=== PATIENT | male | born 1985 | race Hispanic/Latino ===

== ENCOUNTER 2019-08-08 15:49 | Emergency (ER) | payer SELFPAY ==
[2019-08-08] MEDS ORDERED: ONDANSETRON 4 MG ODT TAB PO ONE (19:26)
--- NOTE | 2019-08-08 19:26 | Event Note ---
ED Screening Note ED Screening Note: yesterday morning N/V/D states he has body aches headache states he has hiccups epigastric abd discomfort PMHx GERD no allergies to meds non smoker rare drinker no drug use This initial assessment/diagnostic orders/clinical plan/treatment(s) is/are subject to change based on patients health status, clinical progression and re- assessment by fellow clinical providers in the ED. Further treatment and workup at subsequent clinical providers discretion. Patient/guardian urged not to elope from the ED as their condition may be serious if not clinically assessed and managed. Initial orders include: labs, UA zofran given
[2019-08-08 21:08] LABS: Basophils % (Auto) 0.2 % (0.0-1.8); Lymphocytes # (Auto) 0.4 K/mm3 (1.2-5.4); Lymphocytes % (Auto) 4.9 % (13.4-35.0); Mean Corpuscular HGB Conc 35 % (32-34); Mean Corpuscular Volume 89 fl (84-94); Monocytes # (Auto) 0.4 K/mm3 (0.0-0.8); Monocytes % (Auto) 5.6 % (0.0-7.3); Platelet Count 177 K/mm3 (140-440); Red Blood Count 5.96 M/mm3 (3.65-5.03); Red Cell Distribution Width 13.3 % (13.2-15.2)
[2019-08-08 21:16] LABS: Hematocrit 52.7 % (35.5-45.6); Hemoglobin 18.6 gm/dl (11.8-15.2)
[2019-08-08 21:30] LABS: Alanine Aminotransferase 32 units/L (7-56); Albumin 4.6 g/dL (3.9-5); BUN/Creatinine Ratio 23; Blood Urea Nitrogen 23 mg/dL (9-20); Calcium 9.2 mg/dL (8.4-10.2); Hemolysis Index 11
[2019-08-08 21:48] LABS: Bilirubin,Urine NEG (Negative); Blood,Urine NEG (Negative); Color,Urine Amber (Yellow); Mucus,Urine FEW /HPF; Urobilinogen,Urine < 2.0 mg/dL (<2.0)
[2019-08-08] MEDS ORDERED: FAMOTIDINE 20 MG/2 ML INJ IV ONE (21:51)
[2019-08-08] MEDS ORDERED: SODIUM CHLORIDE 0.9% 1000 ML 1,000 ML IV ONE ×2 (21:51→22:45)
[2019-08-08] MEDS ORDERED: ONDANSETRON 4 MG/2 ML INJ IV ONE (21:51)
[2019-08-08] MEDS ORDERED: ACETAMINOPHEN 500 MG TAB PO ONE (22:45)
[2019-08-09] MEDS ORDERED: cefTRIAXone/NS 1 GM/50 ML 1 GM/50 ML BAG IV ONE (00:32)
--- NOTE | 2019-08-09 00:58 | XRay Report ---
CHEST 2 VIEWS INDICATION / CLINICAL INFORMATION: cough. COMPARISON: None available. FINDINGS: SUPPORT DEVICES: None. HEART / MEDIASTINUM: No significant abnormality. LUNGS / PLEURA: No significant pulmonary or pleural abnormality. No pneumothorax. ADDITIONAL FINDINGS: No significant additional findings. IMPRESSION: 1. No acute abnormality of the chest. Signer Name: Rodolfo Vásquez MD Signed: 08/09/2019 12:53 AM Workstation Name: [id number]
--- NOTE | 2019-08-09 02:47 | Emergency Department Report ---
ED N/V/D HPI - General Chief complaint: Abdominal Pain Stated complaint: N/V Time Seen by Provider: 08/08/19 19:24 Source: patient Mode of arrival: Ambulatory Limitations: No Limitations - History of Present Illness Initial comments: Patient is a 34 year-old white male with no past medical history except GERD who presents to the ED with complaint of acute onset persistent diffuse body aches and pains, nausea and vomiting, diarrhea, epigastric pain, intermittent fever and chills, diaphoresis and headache for the last 2 days worse in the last 6 hours. Patient denies dizziness, syncope, chest pain, shortness of breath, sore throat, dysuria, urinary frequency and urgency, cough, palpitations, hematemesis or hematochezia. The patient states that no one else at home has had similar symptoms. Patient states that he has not been keeping anything down including water since the onset of these symptoms and he feels generally weak. MD complaint: nausea, vomiting, diarrhea, abdominal pain, other (diffuse body aches and pain; fever and chills) -: Sudden, days(s) (2) Description of Vomiting: food contents, watery Description of Diarrhea: water Associated Abdominal Pain: Yes (epigastric pain) Location: epigastric Radiation: none Severity: severe Pain Scale: 7 Quality: cramping, aching Consistency: constant Improves with: none Worsens with: eating, vomiting Context: possible food poisoning, sick contacts Associated Symptoms: denies other symptoms, myalgias, fever/chills, headaches, loss of appetite, malaise, nausea/vomiting. denies: chest pain, cough, diaphoresis, rash, dysuria, shortness of breath, syncope, other - Related Data Previous Rx's Medication Instructions Recorded Last Taken Type Dicyclomine [Bentyl] 20 mg PO Q6H PRN #24 tablet 08/09/19 Unknown Rx Famotidine [Pepcid] 20 mg PO Q12H #60 tablet 08/09/19 Unknown Rx Ibuprofen [Motrin] 600 mg PO Q8H PRN #24 tablet 08/09/19 Unknown Rx Ondansetron [Zofran ODT TAB] 8 mg PO Q8HR PRN #20 tab.rapdis 08/09/19 Unknown Rx cephALEXin [Keflex] 500 mg PO Q8HR #30 cap 08/09/19 Unknown Rx Allergies Allergy/AdvReac Type Severity Reaction Status Date / Time No Known Allergies Allergy Verified 08/08/19 15:49 ED Review of Systems ROS: Stated complaint: N/V Other details as noted in HPI Constitutional: chills, fever, malaise, weakness Eyes: denies: eye pain, eye discharge, vision change ENT: denies: ear pain, throat pain, congestion Respiratory: denies: cough, shortness of breath, wheezing Cardiovascular: denies: chest pain, palpitations Endocrine: no symptoms reported Gastrointestinal: abdominal pain, nausea, vomiting, diarrhea Genitourinary: denies: urgency, dysuria Musculoskeletal: arthralgia, myalgia. denies: back pain, joint swelling Skin: denies: rash, lesions Neurological: headache. denies: weakness, paresthesias Psychiatric: denies: anxiety, depression Hematological/Lymphatic: denies: easy bleeding, easy bruising ED Past Medical Hx - Past Medical History Previous Medical History?: Yes Hx GERD: Yes - Surgical History Past Surgical History?: No - Social History Smoking Status: Never Smoker Substance Use Type: None - Medications Home Medications: Home Medications Medication Instructions Recorded Confirmed Last Taken Type Dicyclomine [Bentyl] 20 mg PO Q6H PRN #24 tablet 08/09/19 Unknown Rx Famotidine [Pepcid] 20 mg PO Q12H #60 tablet 08/09/19 Unknown Rx Ibuprofen [Motrin] 600 mg PO Q8H PRN #24 tablet 08/09/19 Unknown Rx Ondansetron [Zofran ODT TAB] 8 mg PO Q8HR PRN #20 tab.rapdis 08/09/19 Unknown Rx cephALEXin [Keflex] 500 mg PO Q8HR #30 cap 08/09/19 Unknown Rx ED Physical Exam - General Limitations: No Limitations General appearance: alert, in no apparent distress, appears intoxicated - Head Head exam: Present: atraumatic, normocephalic, normal inspection - Eye Eye exam: Present: normal appearance, PERRL, EOMI Pupils: Present: normal accommodation - ENT ENT exam: Present: normal orophraynx, mucous membranes moist, TM's normal bilaterally, normal external ear exam - Neck Neck exam: Present: normal inspection, full ROM. Absent: tenderness, meningismus - Respiratory Respiratory exam: Present: normal lung sounds bilaterally. Absent: respiratory distress, wheezes, chest wall tenderness, decreased breath sounds - Cardiovascular Cardiovascular Exam: Present: normal rhythm, tachycardia, normal heart sounds. Absent: systolic murmur, diastolic murmur, rubs, gallop - GI/Abdominal GI/Abdominal exam: Present: soft, tenderness (mildly tender epigastric area), normal bowel sounds. Absent: guarding, rebound, hyperactive bowel sounds, mass - Extremities Exam Extremities exam: Present: normal inspection, full ROM, normal capillary refill - Back Exam Back exam: Present: normal inspection, full ROM. Absent: tenderness, muscle spasm, paraspinal tenderness - Neurological Exam Neurological exam: Present: alert, oriented X3, CN II-XII intact, normal gait, reflexes normal - Psychiatric Psychiatric exam: Present: normal affect, normal mood - Skin Skin exam: Present: warm, dry, intact, normal color. Absent: rash ED Course Vital Signs 08/08/19 08/08/19 08/08/19 19:25 22:39 22:43 Temperature 97.6 F 102 F H 102 F H Pulse Rate 121 H 106 H 106 H Respiratory 18 16 Rate Blood Pressure 121/77 Blood Pressure 131/67 [Right] O2 Sat by Pulse 98 98 Oximetry 08/08/19 08/09/19 23:51 01:14 Temperature 98.6 F Pulse Rate 103 H Respiratory 16 Rate Blood Pressure Blood Pressure [Right] O2 Sat by Pulse Oximetry ED Medical Decision Making - Lab Data Result diagrams: 08/08/19 20:43 08/08/19 20:43 - Radiology Data Radiology results: report reviewed, image reviewed Chest x-ray shows no acute cardiopulmonary abnormalities or pneumonitis, pleural effusion or pneumothorax - Medical Decision Making This is a 34-year-old male who presented to the ED with flulike symptoms characterized by nausea and vomiting, diarrhea, epigastric pain, diffuse body aches and pains, persistent headache, and intermittent fever over 102F. In the ED, patient is alert and oriented 3 and is not in distress but febrile and tachycardic in triage. Lab test results were reviewed and all nonactionable except for hyponatremia of 132 mmol per liter, hypochloremia of 89.4 millimoles per liter, BUN of 23 and hyperglycemia 116 milligrams per deciliter. Urinalysis shows mild urinary tract infection. Chest x-ray shows no acute cardiopulmonary abnormalities or pneumonitis. Patient was treated in the ED with 2 L of normal saline IV bolus, antiemetics, antacids, antipyretics and also given Rocephin 1 g IV for UTI. On reevaluation, patient's tachycardia resolved as well as fever. Patient felt better the body aches and pains also resolved. Patient's symptoms are likely viral superimposed on urinary tract infection. Patient was discharged home on medications and advised to follow-up with his primary care physician in 5-7 days for reevaluation or return to the ED immediately if symptoms get worse. - Differential Diagnosis GERD; FLU; GASTROENTERITIS; Pneumonia; UTI; URI Critical care attestation.: If time is entered above; I have spent that time in minutes in the direct care of this critically ill patient, excluding procedure time. ED Disposition Clinical Impression: Viral gastroenteritis, Nausea, vomiting and diarrhea, Acute urinary tract infection, Flu-like symptoms GERD (gastroesophageal reflux disease) Qualifiers: Esophagitis presence: without esophagitis Qualified Code(s): K21.9 - Gastro- esophageal reflux disease without esophagitis Disposition: TO HOME OR SELFCARE Is pt being admited?: No Does the pt Need Aspirin: No Condition: Stable Instructions: Acute Nausea and Vomiting (ED), Abdominal Pain (ED), Gastroenteritis (ED), Urinary Tract Infection in Men (ED) Additional Instructions: Maintain a clear liquid diet for 12-24 hours, take medications for nausea and vomiting and other medications prescribed. Drink plenty of fluids and follow-up with your primary care physician in 5-7 days for reevaluation, or return to the ED immediately if she has symptoms get worse. Prescriptions: Dicyclomine [Bentyl] 20 mg PO Q6H PRN #24 tablet PRN Reason: Pain , Severe (7-10) cephALEXin [Keflex] 500 mg PO Q8HR #30 cap Ibuprofen [Motrin] 600 mg PO Q8H PRN #24 tablet PRN Reason: Pain Famotidine [Pepcid] 20 mg PO Q12H #60 tablet Ondansetron [Zofran ODT TAB] 8 mg PO Q8HR PRN #20 tab.rapdis PRN Reason: Nausea Referrals: YUMIKO POLK MD [Staff Physician] - 3-5 Days Forms: Work/School Release Form(ED) Time of Disposition: 02:53 Print Language: COL[place]
[2019-08-09 04:18] VITALS: BP 132/68
== END 2019-08-09 03:48 | disposition home or self-care (01) ==
LOC: ED 15:49
DX: A08.4 Viral intestinal infection, unspecified (principal); N39.0 Urinary tract infection, site not specified; K21.9 Gastro-esophageal reflux disease without esophagitis; R11.2 Nausea with vomiting, unspecified; Z79.899 Other long term (current) drug therapy
CPT/HCPCS: 36415; 71046; 80053; 81001; 82140; 83690; 85025; 87400; 96361; 96365; 96375; 99284; J0696; J2405; J7030; Q0162